=== PATIENT | male | born 1975 | race Caucasian/White ===

== ENCOUNTER 2016-12-02 16:08 | Emergency (ER) | payer OTHER ==
[2016-12-02] MEDS ORDERED: IPRATROPIUM/ALBUTEROL 0.5-2.5 MG/3 ML AMPUL NEB ONE (16:36)
--- NOTE | 2016-12-02 16:39 | ER Document Report ---
ED Medical Screen (RME) - General Chief Complaint: Rib Pain Stated Complaint: RIB PAIN Time seen by provider: 16:36 Mode of Arrival: Ambulatory Information source: Patient Notes: This is a 41-year-old man with history of lymphedema, upper respiratory infections who presents to the emergency room with cough, scattered wheezing, sinus discharge associated with some shortness of breath. Patient denies fever but has had chills. TRAVEL OUTSIDE OF THE [place] IN LAST 30 DAYS: No - HPI Onset: Last week Onset/Duration: Gradual Quality of pain: No pain Associated Symptoms: Chills, Cough (productive), Shortness of breath, Other - Wheezing. denies: Fever Exacerbated by: Denies Relieved by: Denies Similar symptoms previously: Yes Recently seen / treated by doctor: No - Related Data Smoking: Non-smoker Frequency of alcohol use: None Drug Abuse: None Allergies/Adverse Reactions: Penicillins Allergy (Verified 12/02/16 16:21) Past Medical History - General Information source: Patient - Social History Cigarette use (# per day): No Chew tobacco use (# tins/day): No Frequency of alcohol use: None Drug Abuse: None Lives with: Family Family history: None - Past Medical History Cardiac Medical History: Reports: None Pulmonary Medical History: Reports: Hx Sleep Apnea EENT Medical History: Reports: None Neurological Medical History: Reports: None Endocrine Medical History: Reports: None Renal/ Medical History: Reports: None. Denies: Hx Peritoneal Dialysis Malignancy Medical History: Reports None GI Medical History: Reports: None Musculoskeltal Medical History: Reports Other - Lymphedema Skin Medical History: Reports None Psychiatric Medical History: Reports: None Traumatic Medical History: Reports: None Infectious Medical History: Reports: None Surgical Hx: Negative Review of Systems - Review of Systems Constitutional: denies: Chills, Fever EENT: No symptoms reported Cardiovascular: No symptoms reported Respiratory: No symptoms reported Gastrointestinal: No symptoms reported Genitourinary: No symptoms reported Male Genitourinary: No symptoms reported Musculoskeletal: See HPI Skin: No symptoms reported Hematologic/Lymphatic: No symptoms reported Neurological/Psychological: No symptoms reported Physical Exam - Vital signs Vitals: Temp Pulse Resp BP Pulse Ox 98.3 F 98 18 152/94 H 95 12/02/16 16:20 12/02/16 16:20 12/02/16 16:20 12/02/16 16:20 12/02/16 16:20 Notes: Physical exam: GENERAL: 41-year-old man, alert and oriented 3, obese, no acute distress HEAD: Atraumatic, normocephalic. EYES: Pupils equal round and reactive to light, extraocular movements intact, sclera anicteric, conjunctiva are normal. ENT: TMs normal, nares patent, oropharynx clear without exudates. Moist mucous membranes. NECK: Normal range of motion, supple LUNGS: Scattered wheezing, good airway excursion HEART: Regular rate and rhythm without murmurs, rubs or gallops. ABDOMEN: Soft, normoactive bowel sounds. No tenderness to palpation. No guarding, no rebound. No masses appreciated. EXTREMITIES: Normal range of motion, no pitting or edema. No clubbing or cyanosis. NEUROLOGICAL: Cranial nerves II through XII grossly intact. Normal speech, normal gait. PSYCH: Normal mood, normal affect. SKIN: Warm, Dry, normal turgor, no rashes or lesions noted. Course - Re-evaluation Re-evalutation: 12/02/16 17:24 Note: Patient treated with a nebulizer in the ER. We did test ambulate him and he did look short of breath and near syncopal. I had a discussion with him, we will get some labs and have him evaluated in the main ER. - Vital Signs Vital signs: Temp Pulse Resp BP Pulse Ox 98.3 F 98 18 152/94 H 95 12/02/16 16:20 12/02/16 16:20 12/02/16 16:20 12/02/16 16:20 12/02/16 16:20 - Diagnostic Test Radiology reviewed: Image reviewed, Reports reviewed - Fusion, possible pneumonia
[2016-12-02] MEDS ORDERED: LEVOFLOXACIN 750 MG/D5W RTU 150 ML IV ONE (17:23)
[2016-12-02 17:49] LABS: ABSOLUTE BASOPHILS # (AUTO) 0.2 10^3/uL (0.0-0.2); ABSOLUTE EOSINOPHILS # (AUTO) 0.2 10^3/uL (0.0-0.6); ABSOLUTE LYMPHOCYTES (AUTO) 2.3 10^3/uL (0.5-4.7); ABSOLUTE MONOCYTES (AUTO) 0.5 10^3/uL (0.1-1.4); ABSOLUTE NEUT (AUTO) 12.4 10^3/uL (1.7-8.2); BASOPHILS % (AUTO) 1.2 % (0-2); EOSINOPHILS % (AUTO) 1.5 % (0-6); HEMATOCRIT 44.6 % (37.9-51.0); HGB HCT DIFFERENCE 0.4; LYMPHOCYTES % (AUTO) 14.7 % (13-45); MEAN CORPUSCULAR HGB CONC 33.7 g/dL (32.0-36.0); MEAN CORPUSCULAR VOLUME 83 fl (80-97); MONOCYTES % (AUTO) 3.4 % (3-13); RED BLOOD COUNT 5.37 10^6/uL (4.35-5.55); RED CELL DISTRIBUTION WIDTH 13.9 % (11.5-14.0); SEGMENTED NEUTROPHILS % (AUTO) 79.2 % (42-78); WHITE BLOOD COUNT 15.7 10^3/uL (4.0-10.5)
[2016-12-02 18:11] LABS: ALANINE AMINOTRANSFERASE 34 U/L (21-72); ALBUMIN 4.1 g/dL (3.5-5.0); ALKALINE PHOSPHATASE 99 U/L (38-126); ANION GAP 14 (5-19); ASPARTATE AMINO TRANSFERASE 26 U/L (17-59); BILIRUBIN,DIRECT 0.4 mg/dL (0.0-0.4); BILIRUBIN,TOTAL 0.7 mg/dL (0.2-1.3); BLOOD UREA NITROGEN 20 mg/dL (7-20); CALCIUM 9.3 mg/dL (8.4-10.2); CARBON DIOXIDE 29 mmol/L (22-30); CHLORIDE 100 mmol/L (98-107); CREATINE KINASE 582 U/L (55-170); CREATININE RESULT 0.89 mg/dL (0.52-1.25); GLUCOSE 157 mg/dL (75-110); POTASSIUM 4.8 mmol/L (3.6-5.0); SODIUM 143.3 mmol/L (137-145); TOTAL PROTEIN 7.8 g/dL (6.3-8.2)
[2016-12-02 18:22] LABS: CREATINE KINASE MB 1.91 ng/mL (<4.55)
[2016-12-02 18:23] LABS: TROPONIN I < 0.012 ng/mL
--- NOTE | 2016-12-02 19:01 | ER Document Report ---
ED General - General Chief Complaint: Rib Pain Stated Complaint: RIB PAIN Mode of Arrival: Ambulatory Information source: Patient TRAVEL OUTSIDE OF THE [place] IN LAST 30 DAYS: No - HPI Onset: Last week Onset/Duration: Sudden Quality of pain: Sharp, Other - SORENESS Severity: Moderate Associated symptoms: Productive cough - YELLOW Exacerbated by: Coughing, Deep breathing Relieved by: Remaining still - NO PAIN EXCEPT W/ COUGH & DEEP BREATH Similar symptoms previously: No Recently seen / treated by doctor: No - Related Data Allergies/Adverse Reactions: Penicillins Allergy (Verified 12/02/16 16:21) Past Medical History - General Information source: Patient - Social History Smoking Status: Unknown if Ever Smoked Cigarette use (# per day): No Chew tobacco use (# tins/day): No Frequency of alcohol use: None Drug Abuse: None Lives with: Family Family History: Reviewed & Not Pertinent Patient has suicidal ideation: No Patient has homicidal ideation: No - Past Medical History Cardiac Medical History: Reports: None Pulmonary Medical History: Reports: Hx Sleep Apnea EENT Medical History: Reports: None Neurological Medical History: Reports: None Endocrine Medical History: Reports: None Renal/ Medical History: Reports: None. Denies: Hx Peritoneal Dialysis Malignancy Medical History: Reports None GI Medical History: Reports: None Musculoskeltal Medical History: Reports Other - Lymphedema Skin Medical History: Reports None Psychiatric Medical History: Reports: None Traumatic Medical History: Reports: None Infectious Medical History: Reports: None Surgical Hx: Negative Review of Systems - Review of Systems Constitutional: Chills, Fever EENT: See HPI Cardiovascular: Chest pain Respiratory: Cough Gastrointestinal: No symptoms reported Genitourinary: No symptoms reported Musculoskeletal: No symptoms reported Skin: No symptoms reported Neurological/Psychological: No symptoms reported Physical Exam - Vital signs Vitals: Temp Pulse Resp BP Pulse Ox 98.3 F 98 18 152/94 H 95 12/02/16 16:20 12/02/16 16:20 12/02/16 16:20 12/02/16 16:20 12/02/16 16:20 Interpretation: Hypertensive. No: Hypoxic, Tachypneic, Febrile - General General appearance: Appears well, Alert In distress: None - HEENT Head: Normocephalic Eyes: Normal Conjunctiva: Normal Ears: Normal Nasal: Normal Mouth/Lips: Normal Mucous membranes: Normal - Respiratory Respiratory status: No respiratory distress Chest status: Tender - SLIGHT, LOWER LEFT LTERAL, Pain with cough, Other - OBESE Breath sounds: Normal - Cardiovascular Rhythm: Regular Heart sounds: Normal auscultation Murmur: No - Abdominal Inspection: Morbidly Obese Bowel sounds: Normal - Extremities General upper extremity: Normal inspection General lower extremity: Edema - 3+ BILAT.. No: Normal inspection - Neurological Neuro grossly intact: Yes Cognition: Normal Orientation: AAOx4 - Psychological Associated symptoms: Normal affect, Normal mood - Skin Skin Temperature: Warm Skin Moisture: Dry Skin Color: Normal Skin Turgor: Elastic Course - Re-evaluation Re-evalutation: 12/02/16 19:35 Patient is unchanged subjectively. Results of laboratory and radiographic studies discussed in detail with patient and family. - Vital Signs Vital signs: Temp Pulse Resp BP Pulse Ox 98.3 F 98 18 152/94 H 95 12/02/16 16:20 12/02/16 16:20 12/02/16 16:20 12/02/16 16:20 12/02/16 16:20 - Laboratory Result Diagrams: 12/02/16 17:30 12/02/16 17:30 Laboratory results interpreted by me: 12/02/16 12/02/16 12/02/16 17:30 17:30 17:30 WBC 15.7 H Seg Neutrophils % 79.2 H Absolute Neutrophils 12.4 H Glucose 157 H Creatine Kinase 582 H NT-Pro-B Natriuret Pep 165 H Discharge - Discharge Clinical Impression: Pleural effusion on left Pneumonia Qualifiers: Pneumonia type: due to unspecified organism Laterality: bilateral Lung location : lower lobe of lung Qualified Code(s): J18.9 - Pneumonia, unspecified organism Morbid obesity Qualifiers: Obesity type: unspecified obesity type Qualified Code(s): E66.01 - Morbid ( severe) obesity due to excess calories Condition: Stable Disposition: HOME, SELF-CARE Instructions: Pneumonia ([facility]), Pleural Effusion ([facility]), Expectorant Medication ( [facility]), Levofloxacin, Ibuprofen (General) ([facility]) Additional Instructions: REST, DRINK PLENTY OF FLUIDS. TAKE LEVAQUIN DIRECTED. CONTINUE TAKING MUCINEX TO LOOSEN SECRETIONS. TAKE IBUPROFEN OR NAPROXEN TO HELP WITH PAIN. FOLLOW UP WITH YOUR PRIMARY CARE PROVIDER THURSDAY, DECEMBER 04. RETURN TO E.R. IF YOU GET WORSE, ANY TIME. Prescriptions: Levofloxacin [Levaquin 750 mg Tablet] 750 mg PO DAILY #5 tablet Forms: Return to Work Referrals: THEE CROOKS NP [Primary Care Provider] - 12/04/16
[2016-12-02] MEDS ORDERED: CEFTRIAXONE 2 GM/D5W RTU 50 ML IV ONE (19:09)
[2016-12-02 21:10] VITALS: BP 140/85
--- NOTE | 2016-12-03 08:18 | EKG REPORT ---
SEVERITY:- ABNORMAL ECG - SINUS TACHYCARDIA PROBABLE LEFT ATRIAL ABNORMALITY ABNRM R PROG, CONSIDER ASMI OR LEAD PLACEMENT BORDERLINE PROLONGED QT INTERVAL : Confirmed by: Martin Lewis MD 03-Dec-2016 08:18:16
== END 2016-12-02 21:11 | disposition home or self-care (01) ==
LOC: ER 16:08
DX: J90 Pleural effusion, not elsewhere classified (principal); J18.9 Pneumonia, unspecified organism; E66.01 Morbid (severe) obesity due to excess calories; R07.81 Pleurodynia
CPT/HCPCS: 93005; 94640; 99285; 96365; 96366; 36415; 87040; 82553; 82550; 85025; 80053; 84484; 83880; 71020; 93010; J1956; J7620

== ENCOUNTER 2017-04-10 10:00 | Emergency (ER) | payer OTHER ==
[2017-04-10 10:33] LABS: ABSOLUTE BASOPHILS # (AUTO) 0.1 10^3/uL (0.0-0.2); ABSOLUTE EOSINOPHILS # (AUTO) 0.3 10^3/uL (0.0-0.6); ABSOLUTE LYMPHOCYTES (AUTO) 1.7 10^3/uL (0.5-4.7); ABSOLUTE MONOCYTES (AUTO) 0.6 10^3/uL (0.1-1.4); BASOPHILS % (AUTO) 0.8 % (0-2); EOSINOPHILS % (AUTO) 2.4 % (0-6); HEMATOCRIT 40.7 % (37.9-51.0); HEMOGLOBIN 13.3 g/dL (13.5-17.0); HGB HCT DIFFERENCE -0.8; LYMPHOCYTES % (AUTO) 14.4 % (13-45); MEAN CORPUSCULAR HGB CONC 32.7 g/dL (32.0-36.0); MEAN CORPUSCULAR VOLUME 86 fl (80-97); MONOCYTES % (AUTO) 4.9 % (3-13); RED BLOOD COUNT 4.75 10^6/uL (4.35-5.55); RED CELL DISTRIBUTION WIDTH 14.1 % (11.5-14.0); SEGMENTED NEUTROPHILS % (AUTO) 77.5 % (42-78); WHITE BLOOD COUNT 11.6 10^3/uL (4.0-10.5)
--- NOTE | 2017-04-10 10:41 | ER Document Report ---
ED Extremity Problem, Lower - General Chief Complaint: Leg Pain Stated Complaint: RIGHT LEG PAIN, SWELLING Time Seen by Provider: 04/10/17 10:08 Mode of Arrival: Ambulatory Information source: Patient TRAVEL OUTSIDE OF THE [place] IN LAST 30 DAYS: No - HPI Patient complains to provider of: Pain, Swelling Location: Leg Occurred: Yesterday Onset/Duration: Gradual Quality of pain: Achy, Pressure Severity: Moderate Pain Level: 3 Recent injury: No Associated symptoms: denies: Chest pain, Short of breath Exacerbated by: Movement Relieved by: Nothing Notes: Is a 42-year-old male presenting to the emergency room today complaining of right lower extremity pain and swelling with redness that he first noticed yesterday, he reports the pain is worse with certain movements, it is stabbing in nature and intermittent, denies a history of similar symptoms, denies any injury, no recent immobilization, no surgery, no traveling, he does have a history of lymphedema with swelling in his lower extremities, however this is much worse than usual, patient denies any chest pain or shortness of breath - Related Data Allergies/Adverse Reactions: Penicillins Allergy (Verified 04/10/17 10:04) Past Medical History - General Information source: Patient - Social History Smoking Status: Unknown if Ever Smoked Chew tobacco use (# tins/day): No Frequency of alcohol use: None Drug Abuse: None Family History: Reviewed & Not Pertinent Pulmonary Medical History: Reports: Hx Sleep Apnea Renal/ Medical History: Denies: Hx Peritoneal Dialysis Review of Systems - Review of Systems Constitutional: No symptoms reported EENT: No symptoms reported Cardiovascular: No symptoms reported Respiratory: No symptoms reported Gastrointestinal: No symptoms reported Genitourinary: No symptoms reported Male Genitourinary: No symptoms reported Musculoskeletal: See HPI Skin: See HPI Hematologic/Lymphatic: No symptoms reported Neurological/Psychological: No symptoms reported -: Yes All other systems reviewed and negative Physical Exam - Vital signs Vitals: Temp Pulse Resp BP Pulse Ox 98.8 F 95 20 150/89 H 95 04/10/17 10:05 04/10/17 10:05 04/10/17 10:05 04/10/17 10:05 04/10/17 10:05 Interpretation: Normal - General General appearance: Appears well, Alert - HEENT Head: Normocephalic, Atraumatic Eyes: Normal Pupils: PERRL - Respiratory Respiratory status: No respiratory distress Chest status: Nontender Breath sounds: Normal Chest palpation: Normal - Cardiovascular Rhythm: Regular Heart sounds: Normal auscultation Murmur: No - Abdominal Inspection: Morbidly Obese Distension: No distension Bowel sounds: Normal Tenderness: Nontender Organomegaly: No organomegaly - Back Back: Normal, Nontender - Extremities General upper extremity: Normal inspection, Nontender, Normal color, Normal ROM , Normal temperature General lower extremity: No: Julian's sign Notes: Lower extremity with significant swelling, erythema, tenderness to palpate anteriorly and posteriorly, pain with range of motion testing as well, distal sensation and motor is intact with 2+ DP pulses - Neurological Neuro grossly intact: Yes Cognition: Normal Orientation: AAOx4 Kitty Coma Scale Eye Opening: Spontaneous Kitty Coma Scale Verbal: Oriented Kitty Coma Scale Motor: Obeys Commands Kitty Coma Scale Total: 15 Speech: Normal Motor strength normal: LUE, RUE, LLE, RLE Sensory: Normal - Psychological Associated symptoms: Normal affect, Normal mood - Skin Skin Temperature: Warm Skin Moisture: Dry Skin Color: Normal Course - Re-evaluation Re-evalutation: 04/10/17 11:27 Imaging findings discussed with patient and mother at bedside which are consistent with right lower extremity cellulitis, venous Doppler shows no evidence of DVT, patient does have mild leukocytosis, he will be started on outpatient antibiotics, advised to follow-up with primary care provider in 2-3 days or return if symptoms worsen or fail to improve over the course of antibiotics, patient and mother acknowledge understanding and agreement with this - Vital Signs Vital signs: Temp Pulse Resp BP Pulse Ox 98.8 F 95 23 H 147/84 H 95 04/10/17 10:05 04/10/17 10:05 04/10/17 11:00 04/10/17 11:00 04/10/17 11:00 - Laboratory Result Diagrams: 04/10/17 10:16 04/10/17 10:16 Laboratory results interpreted by me: 04/10/17 04/10/17 10:16 10:16 WBC 11.6 H Hgb 13.3 L RDW 14.1 H Absolute Neutrophils 9.0 H Glucose 128 H - Diagnostic Test Radiology reviewed: Image reviewed, Reports reviewed Discharge - Discharge Clinical Impression: Cellulitis Qualifiers: Site of cellulitis: extremity Site of cellulitis of extremity: lower extremity Laterality: right Qualified Code(s): L03.115 - Cellulitis of right lower limb Condition: Stable Disposition: HOME, SELF-CARE Instructions: Cellulitis ([facility]) Additional Instructions: Follow up with your primary care provider in one to 2 days. Return to the emergency room immediately if symptoms worsen or any additional concerns. Prescriptions: Sulfamethoxazole/Trimethoprim [Bactrim Ds Tablet] 1 each PO BID #20 tablet Referrals: THEE CROOKS NP [Primary Care Provider] - Follow up as needed
[2017-04-10 10:44] LABS: ALANINE AMINOTRANSFERASE 27 U/L (21-72); ALBUMIN 3.7 g/dL (3.5-5.0); ALKALINE PHOSPHATASE 100 U/L (38-126); ANION GAP 10 (5-19); ASPARTATE AMINO TRANSFERASE 20 U/L (17-59); BILIRUBIN,DIRECT 0.4 mg/dL (0.0-0.4); BILIRUBIN,TOTAL 0.6 mg/dL (0.2-1.3); BLOOD UREA NITROGEN 18 mg/dL (7-20); CALCIUM 9.1 mg/dL (8.4-10.2); CARBON DIOXIDE 28 mmol/L (22-30); CHLORIDE 102 mmol/L (98-107); CREATININE RESULT 0.77 mg/dL (0.52-1.25); GLUCOSE 128 mg/dL (75-110); POTASSIUM 4.4 mmol/L (3.6-5.0); SODIUM 140.2 mmol/L (137-145)
[2017-04-10 11:15] VITALS: BP 147/84
--- NOTE | 2017-04-10 12:00 | RADIOLOGY REPORT (SQ) ---
EXAM DESCRIPTION: VENOUS UNILATERAL LOWER COMPLETED DATE/TIME: 04/10/2017 11:36 am REASON FOR STUDY: RLE swelling COMPARISON: None. TECHNIQUE: Dynamic and static cheng scale and color images acquired of the right leg venous system. S elected spectral images acquired with additional compression and augmentation maneuvers. The contrala teral common femoral vein and saphenofemoral junction were also imaged. Images stored on PACS. LIMITATIONS: None. FINDINGS: COMMON FEMORAL: Normal phasicity, compression and augmentation. No visualized echogenic ma terial on cheng scale. No defects on color images. FEMORAL: Generally normal compression and augmentation. The portion of the distal superficial femora l vein could not be seen because of body habitus and edema. POPLITEAL: Normal compression, augmentation. No visualized echogenic material on cheng scale. No defec ts on color images. CALF VESSELS: Normal compression and augmentation. However, portion of the peroneal vein could not b e seen because of body habitus and edema. GSV and SSV: Normal compression, augmentation. No visualized echogenic material on cheng scale. No def ects on color images. ANY DEEP VENOUS INSUFFICIENCY: Not evaluated. ANY EVIDENCE OF POPLITEAL CYST: No. OTHER: No other significant finding. CONTRALATERAL COMMON FEMORAL VEIN AND SAPHENOFEMORAL JUNCTION: Normal phasicity, compression and augmentation. No visualized echogenic material on cheng scale. No de fects on color images. IMPRESSION: No DVT or SVT was seen. The study is slightly limited as described. TECHNICAL DOCUMENTATION: JOB ID: [id number] [employer]- All Rights Reserved
== END 2017-04-10 11:40 | disposition home or self-care (01) ==
LOC: ER 10:00
DX: L03.115 Cellulitis of right lower limb (principal); Z88.0 Allergy status to penicillin
CPT/HCPCS: 36415; 80053; 85025; 93971; 99284

== ENCOUNTER 2018-05-13 18:32 | Observation (INO) | payer OTHER ==
[2018-05-13] MEDS ORDERED: ONDANSETRON HCL INJ/PF 4 MG/2 ML SDV IV ONE (20:25)
[2018-05-13] MEDS ORDERED: NORMAL SALINE 1000 ML 1,000 ML IV ONE ×2 (20:25→23:18)
--- NOTE | 2018-05-13 20:28 | ER Document Report ---
ED Medical Screen (RME) - General Chief Complaint: Abdominal Pain Stated Complaint: NAUSEA, ABDOMINAL PAIN, BLOOD IN STOOL Time Seen by Provider: 05/13/18 20:18 Notes: 43-year-old male with a 24-hour history of epigastric abdominal pain that is cramping and sharp and stabbing in nature associated with 24 hours of vomiting as well as some dark black stool per rectum. 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 States he has had no complications until now. TRAVEL OUTSIDE OF THE [place] IN LAST 30 DAYS: No - Related Data Allergies/Adverse Reactions: Penicillins Allergy (Verified 04/10/17 10:04) Past Medical History - General Information source: Patient - Social History Chew tobacco use (# tins/day): No Frequency of alcohol use: None Drug Abuse: None Family history: None Pulmonary Medical History: Reports: Hx Sleep Apnea Renal/ Medical History: Denies: Hx Peritoneal Dialysis Review of Systems - Review of Systems Constitutional: Malaise Gastrointestinal: See HPI Physical Exam - Vital signs Vitals: Temp Pulse Resp BP Pulse Ox 98.5 F 85 20 174/96 H 96 05/13/18 18:42 05/13/18 18:42 05/13/18 18:42 05/13/18 18:42 05/13/18 18:42 Interpretation: Hypertensive - General In distress: Mild Notes: obese - HEENT Head: Normocephalic - Respiratory Respiratory status: No respiratory distress Chest status: Nontender Breath sounds: Normal Chest palpation: Normal - Cardiovascular Rhythm: Regular Heart sounds: Normal auscultation Murmur: No - Abdominal Inspection: Morbidly Obese Bowel sounds: Normal Tenderness: Tender - epigastric Course - Vital Signs Vital signs: Temp Pulse Resp BP Pulse Ox 98.5 F 85 20 174/96 H 96 05/13/18 18:42 05/13/18 18:42 05/13/18 18:42 05/13/18 18:42 05/13/18 18:42 Doctor's Discharge - Discharge Referrals: THEE CROOKS NP [Primary Care Provider] - Follow up as needed
[2018-05-13 21:24] LABS: ABSOLUTE BASOPHILS # (AUTO) 0.1 10^3/uL (0.0-0.2); ABSOLUTE LYMPHOCYTES (AUTO) 1.1 10^3/uL (0.5-4.7); ABSOLUTE MONOCYTES (AUTO) 0.4 10^3/uL (0.1-1.4); ABSOLUTE NEUT (AUTO) 15.5 10^3/uL (1.7-8.2); BASOPHILS % (AUTO) 0.6 % (0-2); EOSINOPHILS % (AUTO) 0.1 % (0-6); HEMATOCRIT 39.6 % (37.9-51.0); HEMOGLOBIN 13.7 g/dL (13.5-17.0); LYMPHOCYTES % (AUTO) 6.2 % (13-45); MEAN CORPUSCULAR HEMOGLOBIN 28.8 pg (27.0-33.4); MEAN CORPUSCULAR HGB CONC 34.6 g/dL (32.0-36.0); MEAN CORPUSCULAR VOLUME 83 fl (80-97); MONOCYTES % (AUTO) 2.5 % (3-13); PLATELET COUNT 322 10^3/uL (150-450); RED BLOOD COUNT 4.75 10^6/uL (4.35-5.55); RED CELL DISTRIBUTION WIDTH 14.6 % (11.5-14.0); SEGMENTED NEUTROPHILS % (AUTO) 90.6 % (42-78); TOTAL CELLS COUNTED % (AUTO) 100 %; WHITE BLOOD COUNT 17.1 10^3/uL (4.0-10.5)
[2018-05-13 21:40] LABS: ALANINE AMINOTRANSFERASE 23 U/L (21-72); ALBUMIN 3.9 g/dL (3.5-5.0); ALKALINE PHOSPHATASE 94 U/L (38-126); ANION GAP 14 (5-19); ASPARTATE AMINO TRANSFERASE 17 U/L (17-59); BILIRUBIN,DIRECT 0.2 mg/dL (0.0-0.4); BILIRUBIN,TOTAL 0.7 mg/dL (0.2-1.3); BLOOD UREA NITROGEN 15 mg/dL (7-20); CALCIUM 9.4 mg/dL (8.4-10.2); CARBON DIOXIDE 24 mmol/L (22-30); CHLORIDE 103 mmol/L (98-107); GLUCOSE 120 mg/dL (75-110); LIPASE 23.2 U/L (23-300); POTASSIUM 4.2 mmol/L (3.6-5.0); SODIUM 141.3 mmol/L (137-145); TOTAL PROTEIN 7.1 g/dL (6.3-8.2)
--- NOTE | 2018-05-13 22:08 | ER Document Report ---
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 He also reports that he may have had black stools although is uncertain. He states that he has bright red blood per rectum regularly secondary to hemorrhoids and that this is unchanged today. Pain in the upper abdomen is aching, cramping, stabbing pain. Nothing improves or worsens this pain. Denies a history of similar symptoms in the past. He has not seen his general doctor regarding today's concerns. Denies fever or constitutional symptoms. TRAVEL OUTSIDE OF THE [place] IN LAST 30 DAYS: No - Related Data Allergies/Adverse Reactions: Penicillins Allergy (Verified 04/10/17 10:04) Past Medical History - General Information source: Patient - Social History Smoking Status: Never Smoker Chew tobacco use (# tins/day): No Frequency of alcohol use: None Drug Abuse: None Lives with: Alone Family History: Reviewed & Not Pertinent Patient has suicidal ideation: No Patient has homicidal ideation: No Pulmonary Medical History: Reports: Hx Sleep Apnea Renal/ Medical History: Denies: Hx Peritoneal Dialysis Review of Systems - Review of Systems Notes: Constitutional: Negative for fever. HENT: Negative for sore throat. Eyes: Negative for visual changes. Cardiovascular: Negative for chest pain. Respiratory: Negative for shortness of breath. Gastrointestinal: Positive for abdominal pain and nausea Genitourinary: Negative for dysuria. Musculoskeletal: Negative for back pain. Skin: Negative for rash. Neurological: Negative for headaches, weakness or numbness. 10 point ROS negative except as marked above and in HPI. Physical Exam - Vital signs Vitals: Temp Pulse Resp BP Pulse Ox 98.5 F 85 20 174/96 H 96 05/13/18 18:42 05/13/18 18:42 05/13/18 18:42 05/13/18 18:42 05/13/18 18:42 Notes: PHYSICAL EXAMINATION: GENERAL: Well-appearing, well-nourished and in no acute distress. HEAD: Atraumatic, normocephalic. EYES: Pupils equal round and reactive to light, extraocular movements intact, sclera anicteric, conjunctiva are normal. ENT: nares patent, oropharynx clear without exudates. Moist mucous membranes. NECK: Normal range of motion, supple without lymphadenopathy LUNGS: Breath sounds clear to auscultation bilaterally and equal. No wheezes rales or rhonchi. HEART: Regular rate and rhythm without murmurs ABDOMEN: Soft, mild epigastric abdominal pain but no other localized areas of tenderness, normoactive bowel sounds. No guarding, no rebound. No masses appreciated. Rectal: Bright red blood, no melena, external hemorrhoids EXTREMITIES: Normal range of motion, no pitting or edema. No cyanosis. NEUROLOGICAL: No focal neurological deficits. Moves all extremities spontaneously and on command. PSYCH: Normal mood, normal affect. SKIN: Warm, Dry, normal turgor, no rashes or lesions noted. Course - Re-evaluation Re-evalutation: 05/13/18 22:12 Patient presents with epigastric abdominal pain with associated nausea but no vomiting which is likely prohibited by his Amauri-en-Y surgery. Abdominal exam without any evidence of melanotic stools to suggest an upper GI bleed. Multiple diagnostic concerns including the possibility of anastomotic leak, biliary pathology, possible gastritis or gastric ulcer. Will await CT with oral contrast and reassess 05/13/18 23:11 CT abdomen pelvis does demonstrate acute cholecystitis. Labs show mild leukocytosis, otherwise unremarkable. IV levo/flagyl has been initiated. Patient is NPO. IV fluids ongoing. I discussed this case with Dr. Pro who has accepted the patient for admission. - Vital Signs Vital signs: Temp Pulse Resp BP Pulse Ox 98.5 F 85 20 174/96 H 96 05/13/18 18:42 05/13/18 18:42 05/13/18 18:42 05/13/18 18:42 05/13/18 18:42 - Laboratory Result Diagrams: 05/13/18 21:05 05/13/18 21:05 Laboratory results interpreted by me: 05/13/18 05/13/18 21:05 21:05 WBC 17.1 H RDW 14.6 H Seg Neutrophils % 90.6 H Lymphocytes % 6.2 L Monocytes % 2.5 L Absolute Neutrophils 15.5 H Glucose 120 H - Diagnostic Test Radiology reviewed: Reports reviewed Discharge - Discharge Clinical Impression: Acute cholecystitis Nausea and vomiting Qualifiers: Vomiting type: unspecified Vomiting Intractability: non-intractable Qualified Code(s): R11.2 - Nausea with vomiting, unspecified Condition: Good Disposition: ADMITTED INPATIENT Admitting Provider: Surgicalist Unit Admitted: Surgical Floor Referrals: THEE CROOKS NP [Primary Care Provider] - Follow up as needed
--- NOTE | 2018-05-13 23:09 | RADIOLOGY REPORT (SQ) ---
EXAM DESCRIPTION: CT ABDOMEN PELVIS WITH IV CONTRAST COMPLETED DATE/TME: 05/13/2018 20:25 CLINICAL HISTORY: 43 years, Male, vomiting, epigastric pain, odalis-en-y in november COMPARISON: None. EXAM DESCRIPTION: CLINICAL HISTORY: vomiting, epigastric pain, odalis-en-y in november COMPARISON: None Available TECHNIQUE: Contiguous axial images of the abdomen and pelvis were obtained after the administration of intravenous contrast followed by reconstruction images.This exam was performed according to our departmental dose-optimization program, which includes automated exposure control, adjustment of the mA and/or kV according to patient size and/or use of iterative reconstruction technique. FINDINGS: The gallbladder wall is thickened and there is pericholecystic fluid. A few cholesterol stones are in the gallbladder. There is moderate pericardial effusion. The heart is not otherwise enlarged. Fat but no bowel extends into small bilateral inguinal hernias. Postsurgical changes are seen. There is a small hiatal hernia. No renal collecting system obstruction on either side. No other acute abnormality. There is no hydronephrosis. Adrenal glands are within normal limits. Aorta is normal in caliber and tapering. No significant free fluid. No free air. No bowel obstruction. The appendix appears normal. No evidence of periappendiceal inflammation. IMPRESSION: Findings are most consistent with acute cholecystitis. There is also significant pericardial effusion.
[2018-05-13] MEDS ORDERED: LEVOFLOXACIN 750 MG/D5W RTU 750 MG/150 ML RTUPB IV ONE (23:18)
[2018-05-13] MEDS ORDERED: METRONIDAZOLE 500 MG/NS RTU 500 MG/100 ML RTUPB IV ONE (23:18)
[2018-05-13] MEDS ORDERED: MORPHINE SULFATE 10 MG/ML INJ IV PRN (23:19)
[2018-05-14] MEDS ORDERED: MORPHINE SULFATE 10 MG/ML INJ IV PRN (05:08)
[2018-05-14] MEDS: NORMAL SALINE 1000 ML 1,000 ML IV PRN ×2 (05:18→21:10)
--- NOTE | 2018-05-14 07:20 | PDOC H&P ---
History of Present Illness Admission Date/PCP: 05/13/18 23:34 THEE CROOKS NP Patient complains of: abdominal pains History of Present Illness: FRED PERSON is a 43 year old male post gastric bypass November 2017 with 150 lbs weight loss c/o RUQ/epigastric pains with nausea 05/12/18 pm. Noted more nausea and pains yesterday and went to ED. Had ultrasound and CT scan which showed acute cholecystitis with gallstones, Incidental finding of pericardial effusion. Have consulted Dr Valdez Weaver Hand who ordered stat echocardiogram prior to laparoscopic cholecystectomy. Denies fever/chills. [place] warm subjectively. Past Medical History Pulmonary Medical History: Reports: Sleep Apnea Past Surgical History Past Surgical History: Reports: Other - gastric bypass November 2017 at [facility] Social History Lives with: Alone Smoking Status: Never Smoker - Advance Directive Resuscitation Status: Full Code Family History Family History: Reviewed & Not Pertinent Parental Family History Reviewed: Yes - Both parents have diabetes mellitus Children Family History Reviewed: No Sibling(s) Family History Reviewed.: No Medication/Allergy Home Medications: Levofloxacin [Levaquin 750 mg Tablet] 750 mg PO DAILY #5 tablet 12/02/16 Sulfamethoxazole/Trimethoprim [Bactrim Ds Tablet] 1 each PO BID #20 tablet 04/10 Allergies/Adverse Reactions: Penicillins Allergy (Verified 04/10/17 10:04) Review of Systems Constitutional: PRESENT: as per HPI Eyes: PRESENT: other - no visual/hearing changes Respiratory: PRESENT: other - has sleep apnea Gastrointestinal: PRESENT: abdominal pain, nausea Genitourinary: PRESENT: other - no dysuria Neurological: PRESENT: other - no seizures Physical Exam Vital Signs: Temp Pulse Resp BP Pulse Ox 97.7 F 75 17 162/75 H 100 05/14/18 05:08 05/14/18 05:08 05/14/18 05:08 05/14/18 05:08 05/14/18 05:08 Intake & Output 05/13/18 05/14/18 05/15/18 06:59 06:59 06:59 Intake Total 1000 Output Total 2000 Balance -1000 Weight 129.7 kg General appearance: PRESENT: mild distress Head exam: PRESENT: atraumatic Eye exam: PRESENT: conjunctiva pink Mouth exam: PRESENT: moist Cardiovascular exam: PRESENT: RRR Pulses: PRESENT: normal radial pulses Vascular exam: PRESENT: normal capillary refill GI/Abdominal exam: PRESENT: soft, tenderness - RUQ tender mass (gallbladder) Rectal exam: PRESENT: deferred Extremities exam: PRESENT: other - lyphedema rt >left Musculoskeletal exam: PRESENT: ambulatory Neurological exam: PRESENT: alert, oriented to person, oriented to place, oriented to time, oriented to situation Psychiatric exam: PRESENT: appropriate affect Skin exam: PRESENT: normal color, warm Results Impressions: Abdomen/Pelvis CT 05/13/18 20:25 IMPRESSION: Findings are most consistent with acute cholecystitis. There is also significant pericardial effusion. Assessment & Plan - Time Time Spent: 30 to 50 Minutes - Inpatient Certification Medical Necessity: Need For IV Fluids, Need for Pain Control, Need for IV Antibiotics, Need for Surgery - Plan Summary Plan Summary: Has pericardial effusion on CT scan. Will get Cardiology consult. Ordered stat Echo For lap marcelino after cardiology clearance
[2018-05-14] MEDS ORDERED: ONDANSETRON HCL INJ/PF 4 MG/2 ML SDV IV PRN (07:22)
--- NOTE | 2018-05-14 09:23 | EKG REPORT ---
SEVERITY:- ABNORMAL ECG - SINUS RHYTHM FIRST DEGREE AV BLOCK PROBABLE LEFT ATRIAL ABNORMALITY : Confirmed by: Cindy Vu MD 14-May-2018 09:23:04
--- NOTE | 2018-05-14 11:06 | XCELERA REPORT ---
[address] [address] Transthoracic Echocardiogram Report Name: FRED PERSON Age: 43 yrs Gender: Male : 1975 Patient Status: Inpatient Patient Location: [address] [place] [address] Study Date: 05/14/2018 09:24 AM Height: 73 in Weight: 285 lb BSA: 2.5 m2 Procedure: A complete two-dimensional transthoracic echocardiogram was performed (2D, M-mode, spectral and color flow Doppler). The study was technically adequate with some images being suboptimal in quality. Reason For Study: pericardial effusion Ordering Physician: SURAJ SOSA Performed By: LUIS Interpretation Summary The left ventricular ejection fraction is normal. There is borderline concentric left ventricular hypertrophy. The left ventricle is grossly normal size. Doppler measurements suggest impaired left ventricular relaxation, which is associated with grade I/IV or mild diastolic dysfunction Wall motion cannot be accurately commented on, but no definite regional wall motion abnormalities noted. The right ventricular systolic function is normal. The right ventricle is grossly normal size. The right atrium is normal in size The left atrial size is normal. There is no mitral regurgitation noted. There is no mitral valve stenosis. No aortic regurgitation is present. There is no aortic valve stenosis There is a trace or physiologic amount of tricuspid regurgitation Right ventricular systolic pressure is at the upper limits of normal The aortic root is not well visualized but is probably normal size. The inferior vena cava appeared normal and decreased > 50% with respiration (RAP 5-10 mmHg) Small to moderate pericardial effusion. There are no echocardiographic or Doppler indications for cardiac tamponade MMode/2D Measurements & Calculations RVDd: 3.4 cm LVIDd: 5.7 cm FS: 43.1 % Ao root diam: 2.8 cm IVSd: 0.95 cm LVIDs: 3.3 cm EDV(Teich): 161.7 ml Ao root area: 6.3 cm2 LVPWd: 1.0 cm ESV(Teich): 42.7 ml LA dimension: 3.7 cm EF(Teich): 73.6 % Doppler Measurements & Calculations MV E max jamil: MV P1/2t max jamil: Ao V2 max: LV V1 max P.0 cm/sec 149.0 cm/sec 203.6 cm/sec 14.8 mmHg MV A max jamil: MV P1/2t: 63.9 msec Ao max PG: LV V1 max: 137.6 cm/sec MVA(P1/2t): 3.4 cm2 16.6 mmHg 192.0 cm/sec MV E/A: 0.94 MV dec slope: 682.6 cm/sec2 MV dec time: 0.21 sec PA V2 max: TR max jamil: MV P1/2t-pr_phl: 134.4 cm/sec 248.5 cm/sec 63.9 msec PA max P.2 mmHgTR max P.7 mmHg Left Ventricle The left ventricle is grossly normal size. There is borderline concentric left ventricular hypertrophy. The left ventricular ejection fraction is preserved. The left ventricular ejection fraction is normal. Doppler measurements suggest impaired left ventricular relaxation, which is associated with grade I/IV or mild diastolic dysfunction. Wall motion cannot be accurately commented on, but no definite regional wall motion abnormalities noted. Right Ventricle The right ventricle is grossly normal size. There is normal right ventricular wall thickness. The right ventricular systolic function is normal. Atria The right atrium is normal in size. The left atrial size is normal. Interarterial septum not well visualized and not well dopplered. Cannot comment on ASD/PFO presence. Mitral Valve The mitral valve is grossly normal. There is no mitral valve stenosis. There is no mitral regurgitation noted. Aortic Valve The aortic valve is grossly normal. There is no aortic valve stenosis. No aortic regurgitation is present. Tricuspid Valve The tricuspid valve is not well visualized secondary to technical limitations. There is no tricuspid stenosis. There is a trace or physiologic amount of tricuspid regurgitation. Right ventricular systolic pressure is at the upper limits of normal. Pulmonic Valve The pulmonic valve is not well visualized. Great Vessels The aortic root is not well visualized but is probably normal size. The inferior vena cava appeared normal and decreased > 50% with respiration (RAP 5-10 mmHg). Effusions Small to moderate pericardial effusion. There are no echocardiographic or Doppler indications for cardiac tamponade. : SURAJ SOSA > Angela Valdez
--- NOTE | 2018-05-14 11:37 | PDOC CONSULTATION ---
Consultation Consult Date: 05/14/18 Attending physician:: SURAJ SOSA Consult reason:: Preop cardiovascular clearance History of Present Illness Admission Date/PCP: 05/13/18 23:34 THEE CROOKS NP Patient complains of: Abdominal pain History of Present Illness: FRED PERSON is a 43 year old male post gastric bypass November 2017 with 150 lbs weight loss c/o RUQ/epigastric pains with nausea 05/12/18 pm. Noted more nausea and pains yesterday and went to ED. Had ultrasound and CT scan which showed acute cholecystitis with gallstones, Incidental finding of pericardial effusion. Have consulted Dr Valdez Ball Ender who ordered stat echocardiogram prior to laparoscopic cholecystectomy. Denies fever/chills. [place] warm subjectively. This history obtained by the surgeon was reviewed with the patient and confirmed. Patient denied any prior history of heart problem. He is physically active. He claims that he gets about 5000 steps a day on average. He has history of chronic lymphedema both lower extremities. Patient denied any history of chest pain, sustained palpitations, syncope, near syncope. Past Medical History Pulmonary Medical History: Reports: Sleep Apnea Past Surgical History Past Surgical History: Reports: Other - gastric bypass November 2017 at [facility] Information Source: Patient Lives with: Alone Smoking Status: Never Smoker - Advance Directive Resuscitation Status: Full Code Family History Family History: Hypertension Parental Family History Reviewed: Yes Children Family History Reviewed: Yes Sibling(s) Family History Reviewed.: Yes Medication/Allergy Home Medications: Bacillus Coagulans [Probiotic] 1 tab PO DAILY 05/14/18 Calcium Carbonate/Vitamin D3 [Calcium 500 mg Chewable Tablet] 500 mg PO DAILY Cyanocobalamin (Vitamin B-12) [Vitamin B-12] 5,000 mcg SL DAILY 05/14/18 Multivitamin [Chewable-Laya] 1 tab PO DAILY 05/14/18 Allergies/Adverse Reactions: Penicillins Allergy (Verified 04/10/17 10:04) Review of Systems Review of Systems: Please see history of present illness and past medical history as wall. Constitutional: No fever or chills reported. Head : No recent chronic headaches, recent head injury. Eyes: No recent eye pain, diplopia, redness, discharge, acute visual changes. Ears: No recent chronic ear pain, acute hearing loss, ear discharge. Oral cavity: No recent ulcerations, bleeding, oral cavity discomfort. Neck: No recent acute neck pain reported. Hematologic: No recent easy bruising or bleeding. Lymphatic: No recent lymph node enlargement reported. Cardiovascular system review: See history of present illness. Respiratory system review: No hemoptysis or blood clots in the lungs reported. Mild Shortness of breath on exertion Gastrointestinal system review: Negative for any recent acute hematemesis, melena. Genitourinary system review: No recent acute or chronic hematuria, flank pain, UTI etc. reported. History of gastric bypass. Skin system review: Negative for any recent abnormal bruising, no rash, no pruritus reported. Neurologic: No prior history of strokes, mini strokes, seizure disorder. Psychologic: No history of major psychosis or major depression reported. Musculoskeletal: Minor aches and pains reported. No acute joint swelling reported. Endocrine: No recent polyuria, polydipsia, recent heat or cold intolerance. Physical Exam Vital Signs: Temp Pulse Resp BP Pulse Ox 97.7 F 91 16 145/65 H 99 05/14/18 07:37 05/14/18 07:37 05/14/18 07:37 05/14/18 07:37 05/14/18 07:37 Intake & Output 05/13/18 05/14/18 05/15/18 06:59 06:59 06:59 Intake Total 1000 Output Total 2000 Balance -1000 Weight 129.7 kg Exam: GENERAL: well-nourished and in no acute distress. Alert and oriented x3 HEAD: Atraumatic, normocephalic. EYES: Pupils equal round and reactive to light, extraocular movements intact, sclera anicteric, conjunctiva are normal. ENT: TMs normal, nares patent, oropharynx clear without exudates. Moist mucous membranes. No oral ulcerations or bleeding gums noted NECK: supple without lymphadenopathy. Trachea is central. No cervical or axillary lymphadenopathy noted. Carotids are 2+, JVD WNL LUNGS: Respiration seems nonlabored, no significant accessory muscle action noted. Breath sounds clear to auscultation bilaterally and equal noted. No wheezes rales or rhonchi noted. No significant dullness noted on percussion. CHEST: Palpation of the chest wall shows no significant chest wall tenderness. HEART: [place] PROJECT LEAD, No PSH, 1/6 IVANNA aortic area, 1/6 albarado systolic murmur mitral area, no rubs, no gallops. ABDOMEN: Soft, right upper quadrant significant tenderness appreciated, normoactive bowel sounds. No guarding, no rebound. No rigidity noted . No masses appreciated. EXTREMITIES: Pedal pulses are 1-2+, no calf tenderness noted. No clubbing or cyanosis. Bilateral significant lymphedema noted. NEUROLOGICAL: Focused neurological exam showed no significant neurologic deficit. Normal speech, no focal weakness appreciated. PSYCH: Normal mood, normal affect. Judgment and insight within normal limits. SKIN: No significant ecchymosis, skin is noted to be warm. MUSCULOSKELETAL EXAM: No significant acute joint swelling noted. Results EKG Comments: Sinus rhythm, no acute ST-T wave changes noted Impressions: Abdomen/Pelvis CT 05/13/18 20:25 IMPRESSION: Findings are most consistent with acute cholecystitis. There is also significant pericardial effusion. Assessment & Plan - Diagnosis (1) Preoperative cardiovascular examination Is this a current diagnosis for this admission?: Yes (2) Pericardial effusion Is this a current diagnosis for this admission?: Yes (3) Obesity Qualifiers: Obesity type: unspecified obesity type Is this a current diagnosis for this admission?: Yes (4) Sleep apnea syndrome Qualifiers: Sleep apnea type: unspecified type Qualified Code(s): G47.30 - Sleep apnea , unspecified (5) Acute cholecystitis Is this a current diagnosis for this admission?: Yes - Notes Notes: Preop cardiovascular examination: Patient stable from cardiac standpoint. He is noted to have moderate pericardial effusion which is predominantly posterior , possibly related to position in which the CT scan was done. There is no echocardiographic evidence of tamponade not there is any clinical evidence. Possibly could be reactive to acute cholecystitis. Do not feel there is contraindication to proceed with patient is cleared for that surgery. Patient will benefit from a follow-up echocardiogram in the week or 2 to assess it again. Hopefully it will subside by then. Pericardial effusion: Moderate in size without any tamponade. Possibly reactive. Obesity: Patient is status post gastric bypass and has lost significant weight. Nutritional deficiencies can happen and this was discussed. Sleep apnea syndrome: Patient will benefit from continuing CPAP therapy and testing for sleep apnea as to if this has gone away since patient has lost significant amount of weight. Acute cholecystitis: Patient being managed by the surgeon. Agree with proceeding with cholecystectomy. Above were discussed with Dr. Sosa - Time Time Spent: 30 to 50 Minutes - CODE STATUS was discussed, patient remains full code. Surrogate decision-maker patient's mother. Multiple medical problems were addressed. More than 50% of the time spent coordinating care, discussing management plans with involved caregivers. Management plans discussed with involved personnels. Medical decision making was of moderate to high complexity , patient's has multiple comorbidities. Medications reviewed and adjusted accordingly: Yes
[2018-05-14] MEDS ORDERED: ONDANSETRON HCL INJ/PF 4 MG/2 ML SDV ONE (13:41)
[2018-05-14] MEDS ORDERED: SUCCINYLCHOLINE CHLORIDE INJ 200 MG/10 ML VIAL ONE (13:41)
[2018-05-14] MEDS ORDERED: ROCURONIUM BROMIDE INJ 50 MG/5 ML VIAL IV ONE (13:41)
[2018-05-14] MEDS ORDERED: KETOROLAC TROMETHAMINE 60 MG/2 ML SDV ONE (13:41)
[2018-05-14] MEDS ORDERED: DEXAMETHASONE SOD PHOSPHATE INJ 4 MG/1 ML VIAL ONE (13:41)
[2018-05-14] MEDS ORDERED: HYDROMORPHONE HCL INJ/PF 2 MG/ML AMPULE ONE (14:32)
[2018-05-14] MEDS ORDERED: FENTANYL CITRATE INJ/PF 100 MCG/2 ML AMPUL ONE (14:33)
[2018-05-14] MEDS ORDERED: MIDAZOLAM 2 MG/2 ML INJ ONE (14:33)
[2018-05-14] MEDS ORDERED: ACETAMINOPHEN 1,000 MG/100 ML RTUPB IV ONE (14:34)
[2018-05-14] MEDS ORDERED: PROPOFOL INJ 200 MG/20 ML VIAL IV ONE (14:34)
[2018-05-14] MEDS ORDERED: KETAMINE HCL INJ 500 MG/10 ML VIAL ONE (14:41)
[2018-05-14] MEDS ORDERED: LIDOCAINE 2% INJ-PF (20 MG/ML) 10 ML AMPUL ONE (14:41)
[2018-05-14] MEDS ORDERED: SUGAMMADEX SODIUM 200 MG/2 ML SDV IV ONE (14:46)
[2018-05-14] MEDS ORDERED: EPHEDRINE SULFATE INJ 50 MG/1 ML AMPULE ONE (14:47)
[2018-05-14] MEDS: BUPIVACAINE HCL 0.25% /EPINEPHRINE INJ/PF 30 ML SDV ONE ×2 (15:18→15:29)
[2018-05-14] MEDS ORDERED: FENTANYL CITRATE INJ/PF 100 MCG/2 ML AMPUL IV PRN (15:58)
[2018-05-14] MEDS ORDERED: DIPHENHYDRAMINE HCL 50 MG/ML VIAL IV PRN (15:58)
[2018-05-14] MEDS ORDERED: PROMETHAZINE HCL INJ 25 MG/1 ML VIAL IV PRN (15:58)
--- NOTE | 2018-05-14 19:56 | OPERATIVE REPORT E ---
Operative Report NAME: FRED PERSON : 1975 AGE: 43Y DATE OF SURGERY: 05/14/2018 ROOM: 434 PREOPERATIVE DIAGNOSIS: ACUTE CALCULOUS CHOLECYSTITIS. POSTOPERATIVE DIAGNOSIS: ACUTE CALCULOUS CHOLECYSTITIS. OPERATION: Laparoscopic cholecystectomy. SURGEON: SURAJ SOSA M.D. ANESTHESIA: General. INDICATIONS: This is a 43-year-old male who had abdominal pains and noted to have gallstones and thickened gallbladder wall. Patient tender in the right upper quadrant and epigastric areas. PROCEDURE: After adequate general anesthesia, patient was placed in the supine position and the abdomen prepped and draped in the usual sterile fashion. An infraumbilical incision was made and the fascia identified through a thick fat pad, since patient is morbidly obese and had gastric bypass in November of this year, with loss of weight, about 150 pounds, but still weighs about 350 pounds. The fascia was then divided and Isai bariatric trocar was then inserted through the abdominal cavity. CO2 was insufflated through the trocar to a pressure of 15 mmHg. Three other trocars were placed under direct vision, a 12-mm in the subxiphoid and two 5-mm in the right upper quadrant. Gallbladder was then identified and noted to be markedly distended, swollen and thickened. It was then decompressed with a long needle and removed some brownish bile, somewhat slightly thickened. Specimen was sent for C and S. Further suctioning of the bile was done, after aspirating about 60 mL of bile. The end of the gallbladder was subsequently grasped and lifted up. The gallbladder was so much enlarged and initial attempt to look at the cystic duct was abandoned and an attempt was done to do a retrograde cholecystectomy. However, there was a considerable amount of bleeding and an attempt was then again done to identify the cystic duct. This time, the infundibulum was pulled up and the cystic duct dissected. It was noted to be relatively small. The angle of safety was then identified with the dissection of the cystic artery. The cystic dct was then clipped with Hemoclips and divided within the distal second and third clips. Cystic artery was then identified and then clipped with Hemoclips and divided within the Hemoclips. The gallbladder was then taken off the liver bed with the use of Harmonic scott.Small oozing on the liver bed was controlled with cautery. The gallbladder was completely removed and put in an Endo bag, which really filled up the bag. This was then pulled through the umbilical port, but the umbilical port needed to be enlarged by cutting through the fascia. The gallbladder was then eventually pulled out and there was a palpable large stone, at least 3 cm in diameter. The trocar was put back and further irrigation of the liver bed was done and adequate hemostasis noted. At any rate, because of the considerable amount of initial bleeding, a #15 Humberto drain was then placed through the right lower-most trocar site and pulled out towards the liver bed. It was then anchored to the skin with 2-0 silk. Following this, infraumbilical fascial defect was then closed with 3 [id number] sutures using 0 Vicryl. The subcutaneous was then irrigated with saline solution and the skin closed with running subcuticular 4-0 Vicryl undyed. The other 2 trocar sites were then closed with subcuticular 4-0 Vicryl undyed. Sterile dressings were then placed over the operative sites. Patient then brought to the recovery room, extubated, in satisfactory condition. Needle, instrument and sponge counts were all correct. Estimated blood loss was about 40 mL. DICTATING PHYSICIAN: SURAJ SOSA M.D. [id number] ARTHURY#: [id number] ID: [id number] JOB#: [id number] ACCT: [id number] cc:SURAJ SOSA M.D. > MTDD
[2018-05-14] MEDS: KETOROLAC TROMETHAMINE INJ/PF 30 MG/1 ML SDV IV SCH (21:10)
[2018-05-15] MEDS ORDERED: LEVOFLOXACIN 750 MG TABLET PO SCH (05:00)
[2018-05-15 05:24] LABS: ABSOLUTE LYMPHOCYTES (AUTO) 1.1 10^3/uL (0.5-4.7); ABSOLUTE MONOCYTES (AUTO) 0.9 10^3/uL (0.1-1.4); ABSOLUTE NEUT (AUTO) 13.3 10^3/uL (1.7-8.2); BASOPHILS % (AUTO) 0.2 % (0-2); HEMATOCRIT 37.1 % (37.9-51.0); HEMOGLOBIN 12.6 g/dL (13.5-17.0); LYMPHOCYTES % (AUTO) 7.3 % (13-45); MEAN CORPUSCULAR HEMOGLOBIN 28.6 pg (27.0-33.4); MEAN CORPUSCULAR HGB CONC 33.9 g/dL (32.0-36.0); MEAN CORPUSCULAR VOLUME 84 fl (80-97); MONOCYTES % (AUTO) 5.8 % (3-13); PLATELET COUNT 301 10^3/uL (150-450); RED CELL DISTRIBUTION WIDTH 14.8 % (11.5-14.0); SEGMENTED NEUTROPHILS % (AUTO) 86.7 % (42-78); TOTAL CELLS COUNTED % (AUTO) 100 %; WHITE BLOOD COUNT 15.3 10^3/uL (4.0-10.5)
[2018-05-15 05:43] LABS: ALANINE AMINOTRANSFERASE 30 U/L (21-72); ALKALINE PHOSPHATASE 79 U/L (38-126); ANION GAP 10 (5-19); ASPARTATE AMINO TRANSFERASE 20 U/L (17-59); BILIRUBIN,DIRECT 0.2 mg/dL (0.0-0.4); BILIRUBIN,TOTAL 0.7 mg/dL (0.2-1.3); BLOOD UREA NITROGEN 9 mg/dL (7-20); CALCIUM 8.7 mg/dL (8.4-10.2); CARBON DIOXIDE 24 mmol/L (22-30); CHLORIDE 106 mmol/L (98-107); GLUCOSE 117 mg/dL (75-110); POTASSIUM 4.1 mmol/L (3.6-5.0); SODIUM 140.3 mmol/L (137-145); TOTAL PROTEIN 5.9 g/dL (6.3-8.2)
[2018-05-15] MEDS: KETOROLAC TROMETHAMINE INJ/PF 30 MG/1 ML SDV IV SCH (06:28)
[2018-05-15] MEDS: NORMAL SALINE 1000 ML 1,000 ML IV PRN (06:30)
[2018-05-15] MEDS ORDERED: KETOROLAC TROMETHAMINE 10 MG TABLET PO PRN (09:22)
--- NOTE | 2018-05-15 09:25 | PDOC PROGRESS REPORT ---
Subjective Progress Note for:: 05/15/18 Subjective:: Patient has no complaints; drain removed by Dr. Pro this morning uneventfully. Patient on clear liquids advancing slowly. Has voided. Reason For Visit: ACUTE CHOLECYSTITIS Physical Exam Vital Signs: Temp Pulse Resp BP Pulse Ox 97.6 F 80 18 126/67 H 95 05/15/18 07:39 05/15/18 07:39 05/15/18 07:39 05/15/18 07:39 05/15/18 08:36 Pulse Oximeter Continuous Start: 05/14/18 19: 41 Freq: RTQ4 Status: Active Document 05/15/18 08:36 TPO (Rec: 05/15/18 08:37 TPO [id number]) Pulse Oximetry Assessment Oxygen Saturation (92-100) 95 Oxygen Delivery Method Room Air Fraction of Inspired Oxygen (FIO2) 21 Equipment Usage Equipment Standby Continuous SpO2 Machine # 2 Intake & Output 05/14/18 05/15/18 05/16/18 06:59 06:59 06:59 Intake Total 1000 5650 Output Total 1999 1925 30 Balance -1000 3725 -30 Weight 129.7 kg 133.2 kg General appearance: PRESENT: no acute distress GI/Abdominal exam: PRESENT: other - Soft, nontender no peritoneal signs dressings on lap Rae sites look dry Results Laboratory Results: 05/15/18 04:33 05/15/18 04:33 05/15/18 05/15/18 04:33 04:33 WBC 15.3 H RBC 4.40 Hgb 12.6 L Hct 37.1 L MCV 84 MCH 28.6 MCHC 33.9 RDW 14.8 H Plt Count 301 Seg Neutrophils % 86.7 H Lymphocytes % 7.3 L Monocytes % 5.8 Eosinophils % 0.0 Basophils % 0.2 Absolute Neutrophils 13.3 H Absolute Lymphocytes 1.1 Absolute Monocytes 0.9 Absolute Eosinophils 0.0 Absolute Basophils 0.0 Sodium 140.3 Potassium 4.1 Chloride 106 Carbon Dioxide 24 Anion Gap 10 BUN 9 Creatinine 0.51 L Est GFR ( Amer) > 60 Est GFR (Non-Af Amer) > 60 Glucose 117 H Calcium 8.7 Total Bilirubin 0.7 AST 20 ALT 30 Alkaline Phosphatase 79 Total Protein 5.9 L Albumin 3.0 L Impressions: Abdomen/Pelvis CT 05/13/18 20:25 IMPRESSION: Findings are most consistent with acute cholecystitis. There is also significant pericardial effusion. Assessment & Plan - Diagnosis (1) Acute cholecystitis Is this a current diagnosis for this admission?: Yes Plan: Impression: Patient is 1 day status post laparoscopic cholecystectomy drain placement, doing well, no complications, tolerating a diet. Recommendations 1. Drain removed this morning 2. Advance diet, ambulate, shower 3. Anticipate discharge home later today.
--- NOTE | 2018-05-15 14:31 | PDOC PROGRESS REPORT ---
Subjective Progress Note for:: 05/15/18 Subjective:: Patient is status post cholecystectomy and doing better. Pt is denying any chest arm or neck discomfort. Patient denying any PND, orthopnea. Patient denied any sustained palpitations, dizziness, syncope, near syncope. Patient denying any fever chills. Patient denying any other significant discomfort. Patient is maintaining sinus rhythm. Review of systems: Rest review of systems negative. Medications: Medications have been reviewed. Reason For Visit: ACUTE CHOLECYSTITIS Physical Exam Vital Signs: Temp Pulse Resp BP Pulse Ox 97.5 F 79 18 144/74 H 95 05/15/18 11:32 05/15/18 11:32 05/15/18 11:32 05/15/18 11:32 05/15/18 11:32 Pulse Oximeter Continuous Start: 05/14/18 19: 41 Freq: RTQ4 Status: Active Document 05/15/18 13:39 TPO (Rec: 05/15/18 13:39 TPO [email or web address]) Pulse Oximetry Assessment Equipment Usage Equipment Standby Continuous SpO2 Machine # 5 Intake & Output 05/14/18 05/15/18 05/16/18 06:59 06:59 06:59 Intake Total 1000 5650 1000 Output Total 2000 1925 30 Balance -1000 3725 970 Weight 129.7 kg 133.2 kg Exam: GENERAL: well-nourished and in no acute distress. Alert and oriented x3 HEAD: Atraumatic, normocephalic. EYES: Pupils equal round and reactive to light, extraocular movements intact, sclera anicteric, conjunctiva are normal. ENT: TMs normal, nares patent, oropharynx clear without exudates. Moist mucous membranes. No oral ulcerations or bleeding gums noted NECK: supple without lymphadenopathy. Trachea is central. No cervical or axillary lymphadenopathy noted. Carotids are 2+, JVD WNL LUNGS: Respiration seems nonlabored, no significant accessory muscle action noted. Breath sounds clear to auscultation bilaterally and equal noted. No wheezes rales or rhonchi noted. No significant dullness noted on percussion. CHEST: Palpation of the chest wall shows no significant chest wall tenderness. HEART: Barrett [employer], No PSH, 1/6 IVANNA aortic area, 1/6 albarado systolic murmur mitral area, no rubs, no gallops. ABDOMEN: Soft, no significant tenderness appreciated, normoactive bowel sounds. No guarding, no rebound. No rigidity noted . No masses appreciated. EXTREMITIES: Pedal pulses are 1-2+, no calf tenderness noted. No clubbing or cyanosis. Bilateral significant lymphedema noted both lower legs. NEUROLOGICAL: Focused neurological exam showed no significant neurologic deficit. Normal speech, no focal weakness appreciated. PSYCH: Normal mood, normal affect. Judgment and insight within normal limits. SKIN: No significant ecchymosis, skin is noted to be warm. MUSCULOSKELETAL EXAM: No significant acute joint swelling noted. Results Laboratory Results: 05/15/18 04:33 05/15/18 04:33 05/15/18 05/15/18 04:33 04:33 WBC 15.3 H RBC 4.40 Hgb 12.6 L Hct 37.1 L MCV 84 MCH 28.6 MCHC 33.9 RDW 14.8 H Plt Count 301 Seg Neutrophils % 86.7 H Lymphocytes % 7.3 L Monocytes % 5.8 Eosinophils % 0.0 Basophils % 0.2 Absolute Neutrophils 13.3 H Absolute Lymphocytes 1.1 Absolute Monocytes 0.9 Absolute Eosinophils 0.0 Absolute Basophils 0.0 Sodium 140.3 Potassium 4.1 Chloride 106 Carbon Dioxide 24 Anion Gap 10 BUN 9 Creatinine 0.51 L Est GFR ( Amer) > 60 Est GFR (Non-Af Amer) > 60 Glucose 117 H Calcium 8.7 Total Bilirubin 0.7 AST 20 ALT 30 Alkaline Phosphatase 79 Total Protein 5.9 L Albumin 3.0 L EKG Comments: Showed sinus rhythm without any sustained tachycardia or bradycardia. Impressions: Abdomen/Pelvis CT 05/13/18 20:25 IMPRESSION: Findings are most consistent with acute cholecystitis. There is also significant pericardial effusion. Assessment & Plan - Diagnosis (1) Preoperative cardiovascular examination Is this a current diagnosis for this admission?: Yes (2) Pericardial effusion Is this a current diagnosis for this admission?: Yes (3) Obesity Qualifiers: Obesity type: unspecified obesity type Is this a current diagnosis for this admission?: Yes (4) Sleep apnea syndrome Qualifiers: Sleep apnea type: unspecified type Qualified Code(s): G47.30 - Sleep apnea , unspecified (5) Acute cholecystitis Is this a current diagnosis for this admission?: Yes - Notes Notes: Postop cardiovascular examination: Patient stable from cardiac standpoint. No cardiac dysrhythmia or other cardiac decompensation noted. Pericardial effusion: Moderate in size without any tamponade. Possibly reactive. Since patient is now status post cholecystectomy, this is likely to resolve. Have recommended a follow-up echocardiogram through my office in about 2 weeks. Obesity: Patient is status post gastric bypass and has lost significant weight. Nutritional deficiencies can happen and this was discussed. Sleep apnea syndrome: Patient will benefit from continuing CPAP therapy and testing for sleep apnea as to if this has gone away since patient has lost significant amount of weight. Acute cholecystitis: Patient is status post cholecystectomy. Currently stable. Status post gastric bypass surgery: We will be happy to follow patient regarding this since I follow such patient in the office. - Time Time with patient: 15-25 minutes - CODE STATUS was discussed, patient remains full code. Surrogate decision-maker unchanged. Multiple medical problems were addressed. More than 50% of the time spent coordinating care, discussing management plans with involved caregivers. Management plans discussed with involved personnels. Medical decision making was of moderate to high complexity , patient's has multiple comorbidities. Medications reviewed and adjusted accordingly: Yes
[2018-05-15 14:34] VITALS: BP 139/63
== END 2018-05-15 15:05 | disposition home or self-care (01) ==
LOC: ER 18:32 → EH 23:34 → INTOOBSV 23:34 → 4S 05-14 03:35
PROVIDERS: ATTEND Surgery
PROC: 0FT44ZZ Resection of Gallbladder, Percutaneous Endoscopic Approach (ICD-10-PCS; principal; 2018-05-14 14:45)
PROC: 3E02340 Introduction of Influenza Vaccine into Muscle, Percutaneous Approach (ICD-10-PCS; 2018-05-15)
DX: K80.12 Calculus of gallbladder with acute and chronic cholecystitis without obstruction (principal); I31.3 Pericardial effusion (noninflammatory); R06.02 Shortness of breath; R01.1 Cardiac murmur, unspecified; G47.30 Sleep apnea, unspecified; E66.01 Morbid (severe) obesity due to excess calories; K64.9 Unspecified hemorrhoids; R03.0 Elevated blood-pressure reading, without diagnosis of hypertension; Z68.38 Body mass index [BMI] 38.0-38.9, adult; Z98.84 Bariatric surgery status; Z82.49 Family history of ischemic heart disease and other diseases of the circulatory system; Z01.810 Encounter for preprocedural cardiovascular examination; Z23 Encounter for immunization
CPT/HCPCS: 99285; 96361; 96374; 36415 ×2; 87040; 87205; 87070; 83690; 85025 ×2; 87075; 87077; 80053 ×2; 88304 ×2; 93306; 74177; 90686; 93005; 94799; 93010; 47562; G0378 ×2; G0008; J2250; J3490 ×4; J1100; J1885 ×3; J3010; J2270; J0330; J2405 ×2; J7030 ×3; J2704; J1956; J0131; 790; 90471; J1170

== ENCOUNTER → 2018-11-01 | Outpatient (CLI) | payer OTHER ==
[2018-11-01 15:02] LABS: HEMATOCRIT 44.7 % (37.9-51.0); HEMOGLOBIN 15.3 g/dL (13.5-17.0); MEAN CORPUSCULAR HEMOGLOBIN 29.1 pg (27.0-33.4); MEAN CORPUSCULAR HGB CONC 34.3 g/dL (32.0-36.0); MEAN CORPUSCULAR VOLUME 85 fl (80-97); PLATELET COUNT 280 10^3/uL (150-450); RED BLOOD COUNT 5.27 10^6/uL (4.35-5.55); RED CELL DISTRIBUTION WIDTH 14.6 % (11.5-14.0); WHITE BLOOD COUNT 8.1 10^3/uL (4.0-10.5)
[2018-11-01 15:24] LABS: ALANINE AMINOTRANSFERASE 55 U/L (21-72); ALBUMIN 4.1 g/dL (3.5-5.0); ALKALINE PHOSPHATASE 92 U/L (38-126); ANION GAP 11 (5-19); ASPARTATE AMINO TRANSFERASE 33 U/L (17-59); BILIRUBIN,DIRECT 0.2 mg/dL (0.0-0.4); BILIRUBIN,TOTAL 0.6 mg/dL (0.2-1.3); BLOOD UREA NITROGEN 22 mg/dL (7-20); CALCIUM 9.6 mg/dL (8.4-10.2); CARBON DIOXIDE 29 mmol/L (22-30); CHLORIDE 103 mmol/L (98-107); GLUCOSE 81 mg/dL (75-110); IRON 93.1 ug/dL (49-181); POTASSIUM 4.7 mmol/L (3.6-5.0); SODIUM 142.6 mmol/L (137-145); TOTAL PROTEIN 7.3 g/dL (6.3-8.2)
[2018-11-01 16:33] LABS: FOLATE > 20.00 ng/mL (>2.76)
== END ==
LOC: OD 14:28
PROVIDERS: ATTEND Specialist
DX: E46 Unspecified protein-calorie malnutrition (principal); K91.2 Postsurgical malabsorption, not elsewhere classified; E11.8 Type 2 diabetes mellitus with unspecified complications; E55.9 Vitamin D deficiency, unspecified
CPT/HCPCS: 36415; 80053; 82306; 82607; 82728; 82746; 83036; 83540; 83735; 83970; 84425; 85027

== ENCOUNTER → 2019-12-05 | Outpatient (CLI) | payer OTHER ==
[2019-12-05 11:40] LABS: HEMATOCRIT 46.6 % (37.9-51.0); HEMOGLOBIN 16.4 g/dL (13.5-17.0); MEAN CORPUSCULAR HEMOGLOBIN 30.4 pg (27.0-33.4); MEAN CORPUSCULAR HGB CONC 35.2 g/dL (32.0-36.0); MEAN CORPUSCULAR VOLUME 86 fl (80-97); PLATELET COUNT 259 10^3/uL (150-450); RED BLOOD COUNT 5.41 10^6/uL (4.35-5.55); RED CELL DISTRIBUTION WIDTH 13.4 % (11.5-14.0); WHITE BLOOD COUNT 8.1 10^3/uL (4.0-10.5)
[2019-12-05 11:57] LABS: ALBUMIN 4.3 g/dL (3.5-5.0); ALKALINE PHOSPHATASE 94 U/L (38-126); ANION GAP 8 (5-19); ASPARTATE AMINO TRANSFERASE 30 U/L (17-59); BILIRUBIN,TOTAL 0.6 mg/dL (0.2-1.3); BLOOD UREA NITROGEN 24 mg/dL (7-20); CALCIUM 9.4 mg/dL (8.4-10.2); CARBON DIOXIDE 26 mmol/L (22-30); CHLORIDE 102 mmol/L (98-107); GLUCOSE 102 mg/dL (75-110); POTASSIUM 4.1 mmol/L (3.6-5.0); TOTAL PROTEIN 7.5 g/dL (6.3-8.2)
[2019-12-05 13:07] LABS: FOLATE > 20.00 ng/mL (>2.76)
== END ==
LOC: OD 11:02
PROVIDERS: ATTEND Physician Assistant
DX: E11.8 Type 2 diabetes mellitus with unspecified complications (principal); R63.5 Abnormal weight gain; E55.9 Vitamin D deficiency, unspecified; E53.1 Pyridoxine deficiency
CPT/HCPCS: 36415; 80053; 82306; 82607; 82746; 83036; 83540; 83735; 83970; 85027